=== PATIENT | male | born 1955 | race Caucasian/White ===

== ENCOUNTER 2023-09-19 14:57 | Inpatient (IN) | payer OTHER ==
[2023-09-19 16:00] VITALS: BMI 20.3
[2023-09-19] MEDS ORDERED: MAG HYDROX/AL HYDROX/SIMETH 30 ML UNIT-DOSE CUP PO PRN (19:09)
[2023-09-19] MEDS ORDERED: LOPERAMIDE HCL 2 MG CAPSULE PO PRN (19:09)
[2023-09-19] MEDS ORDERED: NALOXONE HCL 0.4 MG/ML VIAL IM PRN (19:09)
[2023-09-19] MEDS ORDERED: NALOXONE HCL (KLOXXADO) 8 MG SPRAY NS PRN (19:09)
[2023-09-19] MEDS ORDERED: BENZOCAINE/MENTHOL (CHLORASEPTIC ) LOZENGE MM PRN (19:09)
[2023-09-19] MEDS ORDERED: MAGNESIUM HYDROX 2400MG/30ML ORAL SUSPENSION 30 ML CUP PO PRN (19:09)
[2023-09-19] MEDS ORDERED: ONDANSETRON *ODT* 4 MG TABLET SL PRN (19:09)
[2023-09-19] MEDS ORDERED: ACETAMINOPHEN 325 MG TABLET (FP) PO PRN (19:09)
[2023-09-19] MEDS ORDERED: IBUPROFEN 600 MG TABLET (FP) PO PRN (19:09)
[2023-09-19] MEDS ORDERED: BISMUTH SUBSALICYLATE 524 MG/30 ML PO PRN (19:09)
[2023-09-19] MEDS ORDERED: IBUPROFEN 400 MG TABLET (FP) PO PRN (19:09)
[2023-09-19] MEDS ORDERED: BENZONATATE 200 MG CAPSULE PO PRN (19:09)
[2023-09-19] MEDS ORDERED: DICYCLOMINE HCL 10 MG CAPSULE PO PRN (19:09)
[2023-09-19] MEDS ORDERED: POLYETHYLENE GLYCOL (HEALTHYLAX) 3350 17 GM PACKET PO PRN (19:09)
[2023-09-19] MEDS ORDERED: guaiFENesin 600 MG TABLET.ER (FP) PO PRN (19:09)
[2023-09-19] MEDS: THIAMINE HCL 100 MG TABLET (FP) PO SCH (22:21)
[2023-09-19] MEDS: MELATONIN 5 MG TABLETS PO SCH (22:22)
[2023-09-19] MEDS: LORazepam 1 MG TABLET PO PRN (22:22)
[2023-09-19] MEDS: cloNIDine HCL 0.1 MG TABLET PO PRN (22:22)
[2023-09-19] MEDS: LORazepam 2 MG TABLET PO SCH (22:53)
[2023-09-20] MEDS: PRENATAL VITAMINS W/ FOLIC ACID TABLET (FP) PO SCH (10:24)
[2023-09-20 11:41] LABS: HEMATOCRIT 35.5 % (35.4-49); HEMOGLOBIN 12.6 GM/dL (11.7-16.9); MCHC 35.4 g/dl (32.0-35.9); MEAN CELL VOLUME 98.6 fl (80-96); MEAN PLT VOLUME 6.5 fl (7.5-11.1); PLATELET COUNT 271 10^3/uL (134-434); RDW 16.1 % (11.9-15.9); WHITE BLOOD COUNT 5.1 K/mm3 (4.0-10.0)
[2023-09-20] MEDS: FLU VACCINE (FLULAVAL) PF 60 MCG/0.5 ML SYRINGE 2023-2024 IM ONE (12:17)
[2023-09-20] MEDS: PNEUMOC 20-VAL CONJ-DIP CRM/PF 0.5 ML SYRINGE IM ONE (12:18)
[2023-09-20 12:50] LABS: CHLORIDE 108 mmol/L (98-107); POTASSIUM 4.4 mmol/L (3.5-5.1); SODIUM 139 mmol/L (136-145)
[2023-09-20 12:56] LABS: CALCIUM 8.6 mg/dL (8.5-10.1); GLUCOSE,RANDOM 104 mg/dL (74-106)
[2023-09-20 12:57] LABS: ALBUMIN 2.5 g/dl (3.4-5.0); ANION GAP 2 mmol/L (4-13); CO2 30 mmol/L (21-32)
[2023-09-20 13:00] LABS: CREATININE 1.1 mg/dL (0.55-1.3); SGOT/AST 14 U/L (15-37); SGPT/ALT 32 U/L (13-61)
[2023-09-20 13:02] LABS: BILIRUBIN,TOTAL 0.4 mg/dL (0.2-1); TOT PROT 5.9 g/dl (6.4-8.2)
[2023-09-20 13:03] LABS: ALK PHOS 71 U/L (45-117)
[2023-09-20] MEDS: hydrOXYzine PAMOATE 25 MG CAPSULE (FP) PO PRN (17:30)
[2023-09-20] MEDS: METHOCARBAMOL 500 MG TABLET PO PRN (20:03)
[2023-09-20] MEDS: BUDESONIDE/FORMETEROL FUMARATE 160/4.5 mcg INHALER IH SCH (22:32)
[2023-09-21] MEDS: LORazepam 1 MG TABLET PO SCH (06:23)
[2023-09-21] MEDS: MEGESTROL ACETATE 40 MG TABLET PO SCH (11:29)
[2023-09-21] MEDS: DARUNAVIR 800 MG/COBICISTAT 150MG TABLET PO SCH (11:29)
[2023-09-21] MEDS: EMTRICITABINE/TENOFOV ALAFENAM (DESCOVY) TABLET PO SCH (11:30)
[2023-09-21] MEDS: amLODIPine BESYLATE 5 MG TABLET (FP) PO SCH (12:40)
[2023-09-21] MEDS ORDERED: SUVOREXANT 10 MG TABLET PO PRN (22:00)
[2023-09-21] MEDS: traZODone HCL 100 MG TABLET (FP) PO SCH (22:40)
[2023-09-22] MEDS ORDERED: LORazepam 0.5 MG TABLET PO PRN
[2023-09-22] MEDS: LORazepam 0.5 MG TABLET PO SCH (05:55)
[2023-09-22] MEDS: MEGESTROL ACETATE 400 MG/10 ML UNIT DOSE CUP PO SCH (06:13)
[2023-09-23] MEDS: LORazepam 0.5 MG TABLET PO ONE (06:00)
[2023-09-23 09:27] VITALS: BP 140/84; PULSE 97; RESP 18; TEMP 97.7
== END 2023-09-23 10:50 | disposition home or self-care (01) | DRG 897 ==
LOC: YASAS 14:57 → Y6N 19:20
PROVIDERS: ADMIT Allergy & Immunology; ATTEND Surgery
PROC: HZ2ZZZZ Detoxification Services for Substance Abuse Treatment (ICD-10-PCS; principal; 2023-09-19)
DX: F10.230 Alcohol dependence with withdrawal, uncomplicated (principal); F14.20 Cocaine dependence, uncomplicated; F19.280 Other psychoactive substance dependence with psychoactive substance-induced anxiety disorder; F19.282 Other psychoactive substance dependence with psychoactive substance-induced sleep disorder; F12.20 Cannabis dependence, uncomplicated; F17.210 Nicotine dependence, cigarettes, uncomplicated; Z21 Asymptomatic human immunodeficiency virus [HIV] infection status; E03.9 Hypothyroidism, unspecified; I10 Essential (primary) hypertension; J44.9 Chronic obstructive pulmonary disease, unspecified; Z62.810 Personal history of physical and sexual abuse in childhood; Z86.19 Personal history of other infectious and parasitic diseases
CPT/HCPCS: 36415; 80053; 80307; 84443; 85027; 86593; 86780; 90677; 90686; 93005; 93010; J8999